=== PATIENT | male | born 1955 | race Caucasian/White ===

== ENCOUNTER 2018-09-17 14:29 | Emergency (ER) | payer SELFPAY ==
[~2018-09-17] VITALS: Ht 182.9 cm; Wt 103.6 kg
[2018-09-17 14:52] VITALS: BP 128/76
[2018-09-17] MEDS ORDERED: HYDROcodone/acetaminophen 10/325mg tab PO ONE (16:10)
[2018-09-17] MEDS ORDERED: acetaminophen 325mg tablet PO ONE (16:20)
== END 2018-09-17 18:03 | disposition home or self-care (01) ==
LOC: ER 14:30
DX: S42.211A Unspecified displaced fracture of surgical neck of right humerus, initial encounter for closed fracture (principal); S42.141A Displaced fracture of glenoid cavity of scapula, right shoulder, initial encounter for closed fracture; Z60.2 Problems related to living alone; W01.0XXA Fall on same level from slipping, tripping and stumbling without subsequent striking against object, initial encounter; Y93.01 Activity, walking, marching and hiking; Y92.89 Other specified places as the place of occurrence of the external cause; Y99.8 Other external cause status
CPT/HCPCS: 73030; 99283

== ENCOUNTER 2018-10-23 11:30 | Outpatient (CLI) | payer SELFPAY | END 2018-10-23 12:18 | disposition home or self-care (01) | LOC: ORTHO 11:30 | PROVIDERS: ATTEND Orthopaedic Surgery | DX: S42.254D Nondisplaced fracture of greater tuberosity of right humerus, subsequent encounter for fracture with routine healing (principal); S42.211D Unspecified displaced fracture of surgical neck of right humerus, subsequent encounter for fracture with routine healing; X58.XXXD Exposure to other specified factors, subsequent encounter | CPT/HCPCS: 73030; G0463 ==

== ENCOUNTER 2018-11-20 11:30 | Outpatient (CLI) | payer SELFPAY | END 2018-11-20 13:46 | disposition home or self-care (01) | LOC: ORTHO 11:30 | PROVIDERS: ATTEND Orthopaedic Surgery | DX: S42.291D Other displaced fracture of upper end of right humerus, subsequent encounter for fracture with routine healing (principal); M25.711 Osteophyte, right shoulder; W01.0XXD Fall on same level from slipping, tripping and stumbling without subsequent striking against object, subsequent encounter | CPT/HCPCS: 73030; G0463 ==

== ENCOUNTER 2018-12-25 11:53 | Outpatient (CLI) | payer SELFPAY | END 2018-12-25 13:45 | disposition home or self-care (01) | LOC: ORTHO 11:53 | PROVIDERS: ATTEND Orthopaedic Surgery | DX: S42.391D Other fracture of shaft of right humerus, subsequent encounter for fracture with routine healing (principal); W01.0XXD Fall on same level from slipping, tripping and stumbling without subsequent striking against object, subsequent encounter | CPT/HCPCS: 73030; G0463 ==